=== PATIENT | female | born 1975 | race Two or more races ===

== ENCOUNTER 2018-05-12 10:10 | Emergency (ER) | payer BC ==
[2018-05-12] MEDS ORDERED: ONDANSETRON 4 MG TAB.RAPDIS PO ONE (10:25)
[2018-05-12] MEDS ORDERED: DICYCLOMINE HCL 20 MG TABLET PO ONE (10:26)
[2018-05-12 11:03] LABS: ABSOLUTE MONOCYTES (AUTO) 0.8 10^3/uL (0.1-1.4); ABSOLUTE NEUT (AUTO) 15.3 10^3/uL (1.7-8.2); BASOPHILS % (AUTO) 0.2 % (0-2); HEMATOCRIT 47.7 % (36.0-47.0); HEMOGLOBIN 15.9 g/dL (12.0-15.5); LYMPHOCYTES % (AUTO) 5.8 % (13-45); MEAN CORPUSCULAR HEMOGLOBIN 30.8 pg (27.0-33.4); MEAN CORPUSCULAR HGB CONC 33.2 g/dL (32.0-36.0); MEAN CORPUSCULAR VOLUME 93 fl (80-97); MONOCYTES % (AUTO) 4.8 % (3-13); PLATELET COUNT 384 10^3/uL (150-450); RED BLOOD COUNT 5.14 10^6/uL (3.72-5.28); RED CELL DISTRIBUTION WIDTH 12.9 % (11.5-14.0); SEGMENTED NEUTROPHILS % (AUTO) 89.2 % (42-78); TOTAL CELLS COUNTED % (AUTO) 100 %; WHITE BLOOD COUNT 17.2 10^3/uL (4.0-10.5)
[2018-05-12 11:13] LABS: ALANINE AMINOTRANSFERASE 20 U/L (9-52); ALBUMIN 4.7 g/dL (3.5-5.0); ALKALINE PHOSPHATASE 88 U/L (38-126); ANION GAP 14 (5-19); ASPARTATE AMINO TRANSFERASE 21 U/L (14-36); BILIRUBIN,DIRECT 0.2 mg/dL (0.0-0.4); BILIRUBIN,TOTAL 0.5 mg/dL (0.2-1.3); BLOOD UREA NITROGEN 11 mg/dL (7-20); CARBON DIOXIDE 19 mmol/L (22-30); CHLORIDE 108 mmol/L (98-107); GLUCOSE 109 mg/dL (75-110); LIPASE 54.6 U/L (23-300); POTASSIUM 4.3 mmol/L (3.6-5.0); SODIUM 140.7 mmol/L (137-145); TOTAL PROTEIN 8.7 g/dL (6.3-8.2)
--- NOTE | 2018-05-12 11:28 | RADIOLOGY REPORT (SQ) ---
EXAM DESCRIPTION: ACUTE ABDOMEN SERIES COMPLETED DATE/TIME: 05/12/2018 11:18 am REASON FOR STUDY: nvd COMPARISON: None. NUMBER OF VIEWS: Three views. TECHNIQUE: Frontal chest, supine abdomen and upright/decubitus abdomen radiographic images acquired. LIMITATIONS: None. FINDINGS: CHEST: Lungs clear of infiltrates. FREE AIR: None. No abnormal gas collections. BOWEL GAS PATTERN: Nonobstructive pattern. No dilated loops or air fluid levels. CALCIFICATIONS: No suspicious calcifications. HARDWARE: None in the abdomen. SOFT TISSUES: No gross mass or suggestion of organomegaly. BONES: No acute fracture. No worrisome bone lesions. OTHER: No other significant finding. IMPRESSION: NO RADIOGRAPHIC EVIDENCE FOR ACUTE ABDOMINAL DISEASE. TECHNICAL DOCUMENTATION: JOB ID: [id number] [employer]- All Rights Reserved Reading location - IP/workstation name: [email or web address]
--- NOTE | 2018-05-12 12:21 | ER Document Report ---
ED General - General Chief Complaint: Nausea/Vomiting/Diarrhea Stated Complaint: NAUSEA VOMITING Time Seen by Provider: 05/12/18 10:20 TRAVEL OUTSIDE OF THE [place] IN LAST 30 DAYS: No - HPI Patient complains to provider of: Nausea vomiting diarrhea Notes: Patient is oriental does not speak Japanese family member is translating for the patient. States upper abdominal pain ongoing for 48 hours along with nausea vomiting diarrhea. Patient has no other past medical history no surgical history. Patient has been able tolerate rice at home. No recent antibiotics no recent travel in the last 2 weeks. Patient looks nontoxic upon my evaluation. - Related Data Allergies/Adverse Reactions: No Known Allergies Allergy (Unverified 05/12/18 10:11) Past Medical History - Social History Smoking Status: Never Smoker Frequency of alcohol use: None Drug Abuse: None Family History: Reviewed & Not Pertinent Patient has suicidal ideation: No Patient has homicidal ideation: No Renal/ Medical History: Denies: Hx Peritoneal Dialysis Review of Systems - Review of Systems Constitutional: No symptoms reported EENT: No symptoms reported Cardiovascular: No symptoms reported Respiratory: No symptoms reported Gastrointestinal: Abdominal pain, Diarrhea, Nausea, Vomiting Genitourinary: No symptoms reported Female Genitourinary: No symptoms reported Musculoskeletal: No symptoms reported Skin: No symptoms reported Hematologic/Lymphatic: No symptoms reported Neurological/Psychological: No symptoms reported -: Yes All other systems reviewed and negative Physical Exam - Vital signs Vitals: Temp Pulse Resp BP Pulse Ox 97.5 F 64 12 100/65 100 05/12/18 10:14 05/12/18 10:14 05/12/18 10:14 05/12/18 10:14 05/12/18 10:14 Interpretation: Normal - General General appearance: Appears well, Alert - HEENT Head: Normocephalic, Atraumatic Eyes: Normal Pupils: PERRL - Respiratory Respiratory status: No respiratory distress Chest status: Nontender Breath sounds: Normal Chest palpation: Normal - Cardiovascular Rhythm: Regular Heart sounds: Normal auscultation Murmur: No - Abdominal Inspection: Normal Distension: No distension Bowel sounds: Normal Tenderness: Nontender Organomegaly: No organomegaly - Back Back: Normal, Nontender - Extremities General upper extremity: Normal inspection, Nontender, Normal color, Normal ROM , Normal temperature General lower extremity: Normal inspection, Nontender, Normal color, Normal ROM , Normal temperature, Normal weight bearing. No: Winston's sign - Neurological Neuro grossly intact: Yes Cognition: Normal Orientation: AAOx4 Adarsh Coma Scale Eye Opening: Spontaneous [place] Coma Scale Verbal: Oriented Adarsh Coma Scale Motor: Obeys Commands Adarsh Coma Scale Total: 15 Speech: Normal Motor strength normal: LUE, RUE, LLE, RLE Sensory: Normal - Psychological Associated symptoms: Normal affect, Normal mood - Skin Skin Temperature: Warm Skin Moisture: Dry Skin Color: Normal Course - Re-evaluation Re-evalutation: 05/12/18 20:01 Laboratory values should hemoconcentration leukocytosis and a low bicarb more consistent with possible dehydration. Patient feeling better after Zofran and Bentyl here and able tolerate p.o. water. Did offer the patient further evaluation with IV fluids however patient declines abdomen still soft nontender no rebound or guarding no signs of surgical pathology. 05/12/18 20:01 Recommend symptomatic support with Bentyl and Zofran recommend patient be started on omeprazole for upper abdominal pain return to ER immediately if fevers occur follow-up with a GI specialist. Family and patient state understanding. - Vital Signs Vital signs: Temp Pulse Resp BP Pulse Ox 97.3 F 68 18 97/63 L 99 05/12/18 12:18 05/12/18 12:18 05/12/18 12:18 05/12/18 12:18 05/12/18 12:18 - Laboratory Result Diagrams: 05/12/18 10:45 05/12/18 10:45 Laboratory results interpreted by me: 05/12/18 05/12/18 10:45 10:45 WBC 17.2 H Hgb 15.9 H Hct 47.7 H Seg Neutrophils % 89.2 H Lymphocytes % 5.8 L Absolute Neutrophils 15.3 H Chloride 108 H Carbon Dioxide 19 L Total Protein 8.7 H Discharge - Discharge Clinical Impression: Nausea vomiting and diarrhea, Dehydration, Epigastric abdominal pain Condition: Good Disposition: HOME, SELF-CARE Instructions: Gastritis ([facility]), Gastroenteritis (adult) ([facility]), Gastroenterology Additional Instructions: Laboratory evaluation does not show any acute pathology today except for signs of dehydration. Will likely have a viral illness causing your nausea vomiting and diarrhea. I would highly recommend following up with the director of retention listed for further evaluation of your upper abdominal pain. Please take the Zofran for nausea Bentyl for abdominal pain he may also take Tylenol Motrin for your abdominal pain. Please take the omeprazole daily as prescribed for possible underlying gastritis causing your upper abdominal pain. Return to ER for any concerning symptoms please make sure you drink plenty of fluids today is that your laboratory studies do show signs of dehydration. Prescriptions: Dicyclomine HCl [Bentyl 20 mg Tablet] 20 mg PO QID #30 tablet Omeprazole 20 mg PO DAILY #30 capsule. Ondansetron [Zofran Odt] 4 mg PO Q6 PRN #30 tab.rapdis PRN Reason: For Nausea/Vomiting Forms: Return to Work
[2018-05-12 12:29] VITALS: BP 97/63
== END 2018-05-12 12:26 | disposition home or self-care (01) ==
LOC: ER 10:10
DX: R11.2 Nausea with vomiting, unspecified (principal); R19.7 Diarrhea, unspecified; R10.13 Epigastric pain; E86.0 Dehydration
CPT/HCPCS: 99284; 36415; 83690; 85025; 80053; 74022; J3490; S0119